=== PATIENT | male | born 1945 | race Caucasian/White ===

== ENCOUNTER 2018-05-01 18:53 | Inpatient (IN) | payer MEDICARE ==
[2018-05-01 19:30] LABS: #Eosinphils 0.1 thou/uL (0.0-0.7); #Lymphocytes 1.1 thou/uL (1.20-3.40); #Monocytes 0.6 thou/uL (0.11-0.59); #Neutrophils 8.5 thou/uL (1.40-6.50); %Basophils 0.4 % (0.0-1.0); %Eosinophils 1.1 % (0.0-10.0); %Lymphocytes 10.8 % (21.0-51.0); %Monocytes 5.6 % (0.0-10.0); %Neutrophils 82.1 % (42.0-75.0); Hemoglobin 14.3 g/dL (14.0-18.0); Mean Corpuscular HGB CONC 33.5 g/dL (32.0-36.0); Mean Corpuscular Hemoglobin 32.1 pg (27.0-31.0); Mean Corpuscular Volume 95.6 fL (78.0-98.0); Mean Platelet Volume 9.2 fL (7.4-10.4); Platelet Count 166 thou/uL (130-400); RBC Distribution Width 11.6 % (11.5-14.5); Red Blood Cell (RBC) Count 4.47 mill/uL (4.70-6.10); White Blood Cell (WBC) Count 10.3 thou/uL (4.8-10.8)
[2018-05-01 19:53] LABS: ALT (SGPT) 26 U/L (8-55); AST (SGOT) 17 U/L (5-34); Albumin 3.7 g/dL (3.4-4.8); Alkaline Phosphatase 73 U/L (40-150); Anion Gap 12 mmol/L (10-20); BUN (Urea Nitrogen) 13 mg/dL (8.4-25.7); Bilirubin, Total 0.5 mg/dL (0.2-1.2); CK (CPK) 32 U/L (30-200); Calc. Creatinine Clearance 0 mL/min (70-130); Carbon Dioxide 24 mmol/L (23-31); Chloride 107 mmol/L (98-107); Estimated GFR-MDRD Greater than 90; Glucose 118 mg/dL (83-110); Lipase 35 U/L (8-78); Potassium 3.6 mmol/L (3.5-5.1); Protein, Total 6.7 g/dL (5.8-8.1); Sodium 139 mmol/L (136-145)
[2018-05-01 19:57] LABS: CKMB 1.4 ng/mL (0-6.6); Troponin I Less than 0.010 ng/mL (< 0.028)
[2018-05-01 20:07] LABS: Acetaminophen Less than 6.0 mcg/mL (10.0-30.0); Alcohol Less than 10 mg/dL (Less than 10); Salicylate Less than 8.0 mg/dL (15.0-30.0)
--- NOTE | 2018-05-01 20:19 | RAD ---
RADIOGRAPH CHEST 1 VIEW: HISTORY: A 73-year-old male status post syncope and hypotension. FINDINGS: There is no air space density, pulmonary edema, or pneumothorax. The lateral costophrenic angles are sharp. There is widening of the bilateral paratracheal stripes, especially on the right side. This is nonspecific. There are no prior studies available for comparison. The lungs are hypoinflated. Interstitial markings are prominent. IMPRESSION: 1. No acute pulmonary findings. 2. Nonspecific widening of the mediastinum. jnr POS: [facility]
--- NOTE | 2018-05-01 20:53 | CT ---
CT BRAIN WITHOUT CONTRAST: INDICATIONS: Altered mental status. Near syncopal episode. COMPARISON: Prior MRI brain, dated 12/11/2012. FINDINGS: There is generalized cerebral and cerebellar atrophy. The septum pellucidum and third ventricle are midline. There is cavum septum pellucidum. The mastoid air cells are clear. The paranasal sinuses are clear. The skull is intact. IMPRESSION: No acute intracranial abnormality. POS: [facility]
[2018-05-01 21:47] LABS: Bilirubin Negative (Negative); Blood, Urine Small (Negative); Clarity CLOUDY (Clear); Glucose, Urine (Dipstick) Negative (Negative); Leukocyte Moderate (Negative); Nitrite Positive (Negative); Protein, Urine (Dipstick) Trace mg/dL (Neg-Trace); Specific Gravity, Urine 1.021 (1.002-1.036)
[2018-05-01 21:48] LABS: Bacteria/HPF 4+ HPF (None Seen); Hyaline Casts/LPF 7-10 HYALINE CAST LPF (0-3 Hyaline); Pathc Cast-AUWi Flag 0.58 (0-2.49); Squamous Epithelial None Seen HPF (0-3)
[2018-05-01 21:56] LABS: Amphetamine Not Detected (NotDetected); Barbiturates Screen Not Detected (NotDetected); Benzodiazepine Screen Detected (NotDetected); Cocaine Metabolite Screen Not Detected (NotDetected); Medtox Control Line Valid? VALID (VALID); Medtox Reader # READER 1; Methadone Not Detected (NotDetected); Methamphetamine Not Detected (NotDetected); Opiate Screen Not Detected (NotDetected); Oxycodone Screen Not Detected (NotDetected); Phencyclidine (PCP) Not Detected (NotDetected); THC/Cannabinoid Screen Not Detected (NotDetected); Tricyclic Screen Not Detected (NotDetected)
[2018-05-01] MEDS ORDERED: Acetaminophen 325 MG TAB PO PRN (23:04)
[2018-05-01] MEDS ORDERED: Ondansetron HCl/PF 4 MG/2 ML Vial IVP PRN (23:04)
[2018-05-01 23:35] LABS: Lactic Acid 1.5 mmol/L (0.5-2.2)
[2018-05-01] MEDS ORDERED: MEROPENEM 1 GM/50 ML 1 GM in Premix Bag 1 BAG IVPB SCH (23:45)
[2018-05-02 01:44] VITALS: BMI 22.9
--- NOTE | 2018-05-02 01:52 | HP ---
PRIMARY CARE PHYSICIAN: Amos Talley MD CODE STATUS: DNR/DNI. TIME OF EVALUATION: 10:50 p.m. CHIEF COMPLAINT: Near syncope. HISTORY OF PRESENT ILLNESS: This is a 73-year-old male patient with past medical history of Alzheimer disease, no other major comorbidities, came to the hospital, brought in by the family because the patient had an episode of near syncope where he basically almost passed out to the ground. He did not hit his head, no complete loss of consciousness was described by family, no clear tears , no alleviating factors, baseline for the patient is able to establish a simple conversation and answer simple questions; however, he is unable to manage himself with until his activities of daily living by himself. The patient also can walk inside the house in a slow pace, however, has been so weak that has been unable to walk. No fevers reported. No weakness. REVIEW OF SYSTEMS: Unable to obtain as the patient has severe dementia. Information has been gathered from the family and mentioned in the HPI. PAST MEDICAL HISTORY: Positive for hypertension, hyperlipidemia. PAST SURGICAL HISTORY: No surgical history. PSYCHIATRIC HISTORY: Alzheimer's. SOCIAL HISTORY: No drug use. No smoking history. FAMILY HISTORY: Mother with Alzheimer, father with heart problems and prostate cancer. PHYSICAL EXAMINATION: VITAL SIGNS: Blood pressure 110/66, heart rate 60, respiratory rate was 85, temperature 97.9, pain 0/10, oxygen saturation 98 on room air. GENERAL: The patient is alert. The patient has underlying dementia, disoriented, not in acute distress. HEENT: Eyes normal conjunctivae. Moist oral mucosa, anicteric. NECK: No JVD. RESPIRATORY: Bilateral air entry. No rales. No wheezes or medication management. The patient does have tachypnea, but per family member, he has a very long time, very shallow breathing. CARDIOVASCULAR: Normal rate, regular rhythm. No murmurs, no gallop. No edema. ABDOMEN: Soft, normal bowel sounds. MUSCULOSKELETAL: Baseline range of motion and strength. No tenderness. SKIN: Warm and intact. No pallor, no rash, no redness. Peripheral pulses are present. Capillary refill. Sensory intact. NEUROLOGIC: At baseline. No evidence of any new focal weakness. Baseline speech. Cranial seems to be intact. PSYCHIATRIC: The patient is unable to recall. The patient has dementia. EKG was reviewed by myself. The patient has normal sinus rhythm with a rate of 64 with VA 128, QRS 92, QT corrected 462 prolonged QT. T-wave inversion V2, V3. Brain CT was done. The patient had no acute intracranial abnormalities. Chest x-ray, no acute pulmonary findings, nonspecific widening of the mediastinum. LABORATORY DATA: Reviewed. White count 10.3, hemoglobin 14.3, platelet count 166. Chemistry: Sodium 139, potassium 3.6, chloride 107, carbon dioxide 24, anion gap 12, BUN 13, creatinine 0.8, GFR greater than 90, glucose 118. Lactic acid 4.2, calcium 9.0. Troponin was negative. Beta natriuretic peptide 115.9. TSH was 2.3. Urine was done and was positive with a white count greater than 15, too numerous to count. Toxicology reveals benzodiazepines were positive. ASSESSMENT AND PLAN: The patient will be placed in the hospital with following medical problems: 1. Urinary tract infection. UA is positive. The patient is on meropenem, his blood pressure has been borderline. We will send cultures and adjust treatment for sensitivity. 2. Hyperglycemia with glucose 118, minimal . No need for any immediate treatment at this point. We will monitor, we will treat accordingly. 3. Advanced Alzheimer disease, the patient will need supportive care as inpatient. 4. Code status discussed with and patient's and daughter and son, they are out of the hospital, doing well. family member DNR/DNI. 5. Deep venous thrombosis prophylaxis. 6. Lactic acidosis. Lactic acid 4.2, this is likely secondary to sepsis. The patient has received treatment and antibiotics, follow cultures. Treat underlying condition. The patient received 1 liter normal saline will hydrate with caution given age. MTDD
[2018-05-02 05:01] LABS: #Basophils 0.1 thou/uL (0.0-0.2); #Eosinphils 0.1 thou/uL (0.0-0.7); #Lymphocytes 1.6 thou/uL (1.20-3.40); #Monocytes 0.5 thou/uL (0.11-0.59); #Neutrophils 5.5 thou/uL (1.40-6.50); %Basophils 0.7 % (0.0-1.0); %Eosinophils 1.5 % (0.0-10.0); %Lymphocytes 20.4 % (21.0-51.0); %Monocytes 6.5 % (0.0-10.0); Mean Corpuscular HGB CONC 33.9 g/dL (32.0-36.0); Mean Corpuscular Hemoglobin 32.1 pg (27.0-31.0); Mean Corpuscular Volume 94.7 fL (78.0-98.0); Mean Platelet Volume 8.8 fL (7.4-10.4); Platelet Count 128 thou/uL (130-400); RBC Distribution Width 11.5 % (11.5-14.5); Red Blood Cell (RBC) Count 3.74 mill/uL (4.70-6.10); White Blood Cell (WBC) Count 7.8 thou/uL (4.8-10.8)
[2018-05-02] MEDS: Meropenem 500 MG in Sodium Chloride 0.9% 100 ML IVPB SCH ×3 (05:07→21:23)
[2018-05-02 05:37] LABS: Anion Gap 8 mmol/L (10-20); BUN (Urea Nitrogen) 11 mg/dL (8.4-25.7); Calc. Creatinine Clearance 102 mL/min (70-130); Carbon Dioxide 22 mmol/L (23-31); Chloride 112 mmol/L (98-107); Estimated GFR-MDRD Greater than 90; Glucose 85 mg/dL (83-110); Potassium 3.8 mmol/L (3.5-5.1); Sodium 138 mmol/L (136-145)
[2018-05-02] MEDS ORDERED: Sodium Chloride 0.9% 1,000 ML IV SCH (08:00)
[2018-05-02] MEDS ORDERED: risperiDONE 0.25 MG TAB PO SCH (09:00)
[2018-05-02] MEDS: Donepezil HCl 10 MG TAB PO SCH (09:08)
[2018-05-02] MEDS: Atorvastatin Calcium 20 MG TAB PO SCH (09:08)
[2018-05-02] MEDS: Enoxaparin Sodium 40 MG/0.4 ML SYRINGE SC SCH (09:49)
[2018-05-02] MEDS ORDERED: Melatonin 3 MG TAB PO PRN (13:26)
--- NOTE | 2018-05-02 13:29 | PDOC.PN ---
- Subjective Encounter Start Date: 05/02/18 Encounter Start Time: 11:00 -: pt up in bed confused, daughter at bedside - Objective Resuscitation Status: Resuscitation Status DNR:Do Not Resuscitate Vital Signs & Weight: Vital Signs (12 hours) Temp Pulse Resp BP Pulse Ox 05/02/18 11:44 98 F 55 L 18 104/55 L 100 05/02/18 07:45 98 F 56 L 20 100 05/02/18 07:44 98 F 56 L 20 114/61 100 05/02/18 04:12 98.2 F 55 L 16 106/66 97 Weight Admit Weight 169 lb 4 oz Weight 169 lb 4 oz I&O: 05/01/18 05/02/18 05/03/18 06:59 06:59 06:59 Intake Total 500 Balance 500 Result Diagrams: 05/02/18 04:46 05/02/18 04:46 Phys Exam - Physical Examination pt oriented to self only, confused Neck: no nodes, no JVD, supple, full ROM Respiratory: no wheezing, no rales, no rhonchi, wheezing present, clear to auscultation bilateral Cardiovascular: RRR, no significant murmur, no rub, gallop, irregular Gastrointestinal: soft, non-tender, no distention, positive bowel sounds Musculoskeletal: no edema, pulses present, edema present Dx/Plan (1) Acute metabolic encephalopathy Code(s): G93.41 - METABOLIC ENCEPHALOPATHY Status: Acute (2) UTI (urinary tract infection) Status: Acute (3) Dementia Code(s): F03.90 - UNSPECIFIED DEMENTIA WITHOUT BEHAVIORAL DISTURBANCE Status: Acute - Plan will continue abx will deescalate once cx is back -: pt has baseline dementia and will get PT to evaluate pt -: will continue home meds -: pt has been bradycardiac will get echo -: Daughter states that he has been feeling weak and presyncopal episodes * . Review of Systems - Review of Systems Respiratory: negative: Cough, Dry, Shortness of Breath, Hemoptysis, SOB with Excertion, Pleuritic Pain, Sputum, Wheezing Cardiovascular: negative: chest pain, palpitations, orthopnea, paroxysmal nocturnal dyspnea, edema, light headedness, other Gastrointestinal: negative: Nausea, Vomiting, Abdominal Pain, Diarrhea, Constipation, Melena, Hematochezia, Other - Medications/Allergies Allergies/Adverse Reactions: Allergies Allergy/AdvReac Type Severity Reaction Status Date / Time bee venom protein (honey bee) Allergy Verified 05/01/18 23:29 Penicillins Allergy Verified 05/01/18 23:29 Medications: Current Medications Acetaminophen (Tylenol) 650 mg PO Q4H PRN PRN Reason: Headache/Fever or Pain Atorvastatin Calcium (Lipitor) 20 mg PO DAILY [facility] Last Admin: 05/02/18 09:08 Dose: Not Given Donepezil HCl (Aricept) 10 mg PO DAILY [facility] Last Admin: 05/02/18 09:08 Dose: 10 mg Enoxaparin Sodium (Lovenox) 40 mg SC 0900 [facility] Last Admin: 05/02/18 09:49 Dose: Not Given Meropenem 500 mg/ Sodium (Chloride) 100 mls @ 200 mls/hr IVPB 0500,1300,2100 [facility] Last Admin: 05/02/18 05:07 Dose: 100 mls Sodium Chloride (Normal Saline 0.9%) 1,000 mls @ 70 mls/hr IV .[id number] [facility] Stop: 05/02/18 22:17 Last Admin: 05/02/18 08:20 Dose: 1,000 mls Melatonin (Melatonin) 3 mg PO HS PRN PRN Reason: Insomnia Memantine (Namenda) 5 mg PO BID [facility] Last Admin: 05/02/18 09:08 Dose: 5 mg Ondansetron HCl (Zofran) 4 mg IVP Q6H PRN PRN Reason: Nausea/Vomiting Quetiapine Fumarate (Seroquel) 25 mg PO HS PRN PRN Reason: Anxiety/Agitation Risperidone (Risperidone) 0.25 mg PO DAILY [facility] Last Admin: 05/02/18 09:08 Dose: 0.25 mg Sodium Chloride (Flush - Normal Saline) 10 ml IVF Q12HR [facility] Last Admin: 05/02/18 08:22 Dose: 10 ml Sodium Chloride (Flush - Normal Saline) 10 ml IVF PRN PRN PRN Reason: Saline Flush Trazodone HCl (Desyrel) 100 mg PO HS [facility]
[2018-05-02] MEDS ORDERED: TRAZODONE HCL 100 MG PO SCH (21:00)
[2018-05-02] MEDS: traZODone HCl 50 MG TAB PO SCH (22:08)
[2018-05-03] MEDS: Meropenem 500 MG in Sodium Chloride 0.9% 100 ML IVPB SCH ×3 (05:22→21:51)
[2018-05-03] MEDS: Atorvastatin Calcium 20 MG TAB PO SCH (08:39)
[2018-05-03] MEDS: Donepezil HCl 10 MG TAB PO SCH (08:39)
[2018-05-03] MEDS: Enoxaparin Sodium 40 MG/0.4 ML SYRINGE SC SCH (09:19)
--- NOTE | 2018-05-03 19:33 | PDOC.PN ---
- Subjective Encounter Start Date: 05/03/18 Encounter Start Time: 19:25 Subjective: f/u for UTI and encephalopathy. Overall doing much better per family -: report. Back to baseline per son. - Objective Resuscitation Status: Resuscitation Status DNR:Do Not Resuscitate MAR Reviewed: Yes Vital Signs & Weight: Vital Signs (12 hours) Temp Pulse Pulse Pulse Resp BP BP 05/03/18 17:55 62 05/03/18 16:15 97.7 F 54 L 18 05/03/18 13:23 55 L 53 L 122/75 121/73 05/03/18 12:19 97.6 F 54 L 18 05/03/18 07:46 98.6 F 59 L 20 BP BP BP BP Pulse Ox Pulse Ox Pulse Ox 05/03/18 17:55 152/83 H 160/92 H 142/75 H 05/03/18 16:15 136/71 99 05/03/18 13:23 94 L 94 L 05/03/18 12:19 127/69 100 05/03/18 07:46 103/56 L 100 Weight Admit Weight 169 lb 4 oz Weight 169 lb 4 oz I&O: 05/02/18 05/03/18 05/04/18 06:59 06:59 06:59 Intake Total 500 2545 960 Balance 500 2545 960 Result Diagrams: 05/02/18 04:46 05/02/18 04:46 Additional Labs: Microbiology 05/01/18 20:25 Urine Straight Catheter Urine Culture - Final Enterobacter aerogenes 05/01/18 19:48 Venous blood - Right Hand Blood Culture - Preliminary NO GROWTH AT 48 HOURS 05/01/18 19:42 Venous blood - Right Arm Blood Culture - Preliminary NO GROWTH AT 48 HOURS Laboratory Tests 05/01/18 05/01/18 05/01/18 19:19 19:19 19:59 Lactic Acid 4.2 H* Ammonia 39 TSH 3rd Generation 2.3294 05/01/18 23:17 Lactic Acid 1.5 Ammonia TSH 3rd Generation Radiology Reviewed by me: Yes (CT brain - neg) EKG Reviewed by me: Yes (Tele - Sinus janee) Phys Exam - Physical Examination Constitutional: NAD HEENT: PERRLA, sclera anicteric, oral pharynx no lesions Neck: no nodes, no JVD, supple Respiratory: no wheezing, no rales, no rhonchi, clear to auscultation bilateral S1, S2 Cardiovascular: RRR, no significant murmur, no rub, gallop Gastrointestinal: soft, non-tender, no distention, positive bowel sounds Musculoskeletal: no edema, pulses present RUE with resting tremor Neurological: moves all 4 limbs A x O x 1 Skin: normal turgor, cap refill <2 seconds Dx/Plan (1) UTI (urinary tract infection) Status: Acute Comment: + enterobacter spp, convert to Levaquin in am, continue Meropenem (2) Acute metabolic encephalopathy Code(s): G93.41 - METABOLIC ENCEPHALOPATHY Status: Acute Comment: Secondary to #1, improved (3) Dementia Code(s): F03.90 - UNSPECIFIED DEMENTIA WITHOUT BEHAVIORAL DISTURBANCE Status: Acute Comment: Advanced Alzheimer's dementia, supportive mgmt, caregiver for 1 :1 (4) Elevated blood pressure reading Code(s): R03.0 - ELEVATED BLOOD-PRESSURE READING, W/O DIAGNOSIS OF HTN Status : Acute Comment: Serial BP monitoring - Plan plan discussed w/ family, continue antibiotics, PT/OT, social media marketing analyst, out of bed/ambulate, DVT proph w/SCDs Stable overall -: Continue Meropenem -: Start Levaquin in am -: PT for mobilization -: 2D echo pending * Likely home in 05/04/18
[2018-05-03] MEDS ORDERED: risperiDONE 0.25 MG TAB PO SCH (21:00)
[2018-05-03] MEDS: traZODone HCl 50 MG TAB PO SCH (21:51)
[2018-05-04] MEDS: Meropenem 500 MG in Sodium Chloride 0.9% 100 ML IVPB SCH (05:28)
[2018-05-04] MEDS: Atorvastatin Calcium 20 MG TAB PO SCH (09:33)
[2018-05-04] MEDS: Enoxaparin Sodium 40 MG/0.4 ML SYRINGE SC SCH (09:33)
[2018-05-04] MEDS: Donepezil HCl 10 MG TAB PO SCH (09:33)
[2018-05-04 14:48] VITALS: BP 98/63; TEMP 97.8
--- NOTE | 2018-05-04 20:22 | DIS ---
DATE OF ADMISSION: 05/01/2018 DATE OF DISCHARGE: 05/04/2018 DISCHARGE DIAGNOSES: 1. Urinary tract infection with Enterobacter species. 2. Acute metabolic encephalopathy secondary to #1, resolving. 3. Advanced Alzheimer dementia. 4. Deconditioning. CONSULTATIONS: None. PERTINENT LABORATORY AND X-RAY FINDINGS: Lactic acid level ranged between 1.5-4.2. LFTs within norm al limits. BNP 116. TSH 2.33. Serum ammonia level 39. CBC showed a white blood cell count ranged between 7.8-10.3. Hemoglobin ranged between 12.0-14.3. Urine drug screen positive for benzodiazepin es. Urine culture dated 05/01/2018 showed greater than 100,000 colonies of Enterobacter aerogenes, p ansensitive except for cefoxitin. Blood cultures x2 dated 05/01/2018 showed no growth at [address] of the brain without contrast dated 05/01/2018 showed no acute intracranial process. Portable sol st x-ray dated 05/01/2018 showed no acute cardiopulmonary process. HOSPITAL COURSE: The patient was admitted to the telemetry unit after initially presenting with alte red mentation and encephalopathy with associated urinary tract infection. Urine culture did show Ent erobacter species and the patient continued on meropenem intravenously throughout the hospital course . The patient transitioned to Levaquin 500 mg daily with plans to complete outpatient antibiotic cov erage for 5 days on discharge. The patient's overall mental status improved with treatment of underl amado urinary tract infection. At which point, the patient is clinically at baseline mental status fu nctional level per family report by the time of discharge. I have examined the patient at the time o f discharge and discussed followup instructions with the family who verbalized understanding and agre ement. Due to patient's overall deconditioned status, the patient will be set up with home health se rvices including physical therapy on discharge. The patient overall clinically stable and ready for discharge on 05/04/2018. DISCHARGE MEDICATIONS: 1. Lipitor 20 mg p.o. daily. 2. Donepezil 10 mg p.o. b.i.d. 3. Fluoxetine 20 mg p.o. daily. 4. Namenda 5 mg p.o. daily. 5. Risperdal 0.25 mg p.o. at bedtime. 6. Trazodone 100 mg p.o. at bedtime. 7. Levofloxacin 500 mg p.o. daily x5 days. FOLLOWUP: The patient will follow up with his primary care provider, Dr. Amos Talley within 7 days o f discharge. CONDITION ON DISCHARGE: Stable. ACTIVITY: Ad ronnell. Rolling walker with home physical therapy on discharge. DIET: Regular. CODE STATUS: DO NOT RESUSCITATE. DISPOSITION: Home with [facility], including physical therapy on 05/04/2018. Total time preparing and coordinating discharge is 36 minutes.
--- NOTE | 2018-05-10 08:55 | PQF ---
[employer] Field Technician Crystal Reports Winform Viewer Jonathan Owen CLINICAL DOCUMENTATION CLARIFICATION FORM: POST DISCHARGE Pt was followed and managed by my colleagues, they have more knowledge about hospital course and final diagnosis, and will be able to better answer your query,thank you Addendum to original discharge summary date: ____ Late entry note date: __ Please exercise your independent, professional judgment in responding to the clarification form. Clinical indicators are provided on the bottom of this form for your review Please check appropriate box(es): [ ] Sepsis due to: (Pna, UTI, gangrenous gall bladder, etc.) Due to: [ ] Device (please specify) [ ] Implant [ ] Graft [ ] Infusion [ ] SIRS due to non-infectious process (please specify etiology) [ ] with organ dysfunction [ ] without organ dysfunction [ ] Severe sepsis with acute organ dysfunction of: (Examples: respiratory failure, encephalopathy, acute kidney failure, other) [ ] Septic Shock [ ] Localized infection without sepsis [ ] Other diagnosis [ ] Unable to determine In addition, please specify: Present on Admission (POA): [ ] Yes [ ] No [ ] Unable to determine For continuity of documentation, please document condition throughout progress notes and discharge summary. Thank You. CLINICAL INDICATORS - SIGNS / SYMPTOMS / LABS On admit WBC 10.3, Lactic acid 4.2 patient diagnosed with UTI due to Enterobacter species- per HP Lactic acidosis likely secondary to sepsis- ED diagnosis sepsis with UTI. Patient does have clinical indicators of increased WBC, Lactic acid, encephalopathy and infection however the documentation does not support coding sepsis due to it being documented as a likely diagnosis on the HP and not carried throughout the progress notes/DC Was the sepsis diagnosis on the H&P/ED ruled out or resolved? (This form is maintained as a part of the permanent medical record) 2014 [employer]. All Rights Reserved Yara [email or web address] [phone] MTDD
== END 2018-05-04 14:52 | disposition home or self-care (01) | DRG 689 ==
LOC: ERS 18:53 → 2NO 22:17
PROVIDERS: ADMIT Hospitalist; ATTEND Hospitalist
DX: N39.0 Urinary tract infection, site not specified (principal); G93.41 Metabolic encephalopathy; G30.9 Alzheimer's disease, unspecified; F02.80 Dementia in other diseases classified elsewhere, unspecified severity, without behavioral disturbance, psychotic disturbance, mood disturbance, and anxiety; I10 Essential (primary) hypertension; E78.5 Hyperlipidemia, unspecified; R73.9 Hyperglycemia, unspecified; B96.89 Other specified bacterial agents as the cause of diseases classified elsewhere; Z66 Do not resuscitate
CPT/HCPCS: 36415; 51701; 70450; 71045; 80048; 80053; 80306; 80307; 81003; 81015; 82140; 82550; 82553; 83605; 83690; 83880; 84443; 84484; 85025; 87040; 87077; 87086; 87186; 93005; 96361; 96365; 96375; A4216; G8978-GP-CM; G8979-GP-CK; J1650; J1956; J2185; J7050

== ENCOUNTER 2018-08-08 09:25 | Inpatient (IN) | payer MEDICARE ==
[2018-08-08 10:05] LABS: #Basophils 0.1 thou/uL (0.0-0.2); #Eosinphils 0.2 thou/uL (0.0-0.7); #Lymphocytes 1.8 thou/uL (1.20-3.40); #Monocytes 0.6 thou/uL (0.11-0.59); #Neutrophils 5.5 thou/uL (1.40-6.50); %Basophils 0.9 % (0.0-1.0); %Eosinophils 2.9 % (0.0-10.0); %Lymphocytes 22.2 % (21.0-51.0); %Monocytes 7.7 % (0.0-10.0); %Neutrophils 66.3 % (42.0-75.0); Hemoglobin 14.2 g/dL (14.0-18.0); Mean Corpuscular HGB CONC 33.3 g/dL (32.0-36.0); Mean Corpuscular Hemoglobin 31.2 pg (27.0-31.0); Mean Corpuscular Volume 93.8 fL (78.0-98.0); Mean Platelet Volume 8.8 fL (7.4-10.4); Platelet Count 254 thou/uL (130-400); RBC Distribution Width 11.5 % (11.5-14.5); Red Blood Cell (RBC) Count 4.56 mill/uL (4.70-6.10); White Blood Cell (WBC) Count 8.2 thou/uL (4.8-10.8)
[2018-08-08 10:14] LABS: INR-International Normal Ratio 1.1; PTT 29.7 SEC (22.9-36.1); Prothrombin Time 13.8 SEC (12.0-14.7)
--- NOTE | 2018-08-08 10:24 | RAD ---
CHEST 1 VIEW: Date: 08/08/18 COMPARISON: 05/01/18. HISTORY: Frequent falls. Fever. FINDINGS: Normal cardiac silhouette. Pulmonary vessels and hilum are normal. Costophrenic angles are clear. No masses or consolidation. No pneumothorax or osseous abnormalities. IMPRESSION: No acute cardiopulmonary process. POS: [facility]
--- NOTE | 2018-08-08 10:24 | RAD ---
2 VIEWS RIGHT HIP: Date: 08/08/18 COMPARISON: None. HISTORY: Fell 2 weeks ago at home before being placed on Hospice. Right hip pain. FINDINGS: Two views of the right hip show a fracture of the right femoral neck. There appears to be absence of bone in the region of the femoral neck and this could be a pathologic fracture. No dislocation is see n. IMPRESSION: Right femoral neck fracture. This fracture may be a pathologic fracture. POS: [facility]
[2018-08-08 10:27] LABS: ALT (SGPT) 8 U/L (8-55); AST (SGOT) 11 U/L (5-34); Albumin 3.4 g/dL (3.4-4.8); Alkaline Phosphatase 87 U/L (40-150); Anion Gap 9 mmol/L (10-20); BUN (Urea Nitrogen) 27 mg/dL (8.4-25.7); Bilirubin, Total 0.4 mg/dL (0.2-1.2); Calc. Creatinine Clearance 0 mL/min (70-130); Calcium 9.1 mg/dL (7.8-10.44); Carbon Dioxide 30 mmol/L (23-31); Chloride 106 mmol/L (98-107); Estimated GFR-MDRD Greater than 90; Globulin 3.3 g/dL (2.4-3.5); Glucose 105 mg/dL (83-110); Lipase 23 U/L (8-78); Potassium 4.1 mmol/L (3.5-5.1); Protein, Total 6.7 g/dL (5.8-8.1); Sodium 141 mmol/L (136-145)
--- NOTE | 2018-08-08 10:44 | CT ---
CT CERVICAL SPINE NONCONTRAST: HISTORY: 73-year-old male status post acute cervical trauma from fall. FINDINGS: There are no jumped or perched facets. There is no evidence of acute fracture. The vertebral body h eights are maintained. There is no prevertebral soft tissue swelling. IMPRESSION: No evidence of acute fracture or acute traumatic subluxation. jackie POS: [facility]
--- NOTE | 2018-08-08 10:55 | CT ---
CT HEAD NONCONTRAST: History: Fall, head injury, altered mental status. Comparison: 05-01-18 FINDINGS: There is no evidence of acute intracranial hemorrhage or infarct. Diffuse cortical atrophy and chroni c ischemic small vessel disease are again demonstrated. No mass effect or shift of midline structures . Visualized paranasal sinuses remain well aerated. IMPRESSION: Chronic type findings are stable. No acute intracranial abnormalities are demonstrated. POS: [facility]
[2018-08-08 11:21] LABS: Bilirubin Negative (Negative); Blood, Urine Negative (Negative); Clarity CLEAR (Clear); Glucose, Urine (Dipstick) Negative (Negative); Leukocyte Negative (Negative); Nitrite Negative (Negative); Protein, Urine (Dipstick) Negative (Neg-Trace); Specific Gravity, Urine 1.032 (1.002-1.036)
[2018-08-08] MEDS ORDERED: Ondansetron ODT 4 MG TAB SL PRN (14:46)
[2018-08-08] MEDS ORDERED: Acetaminophen 325 MG TAB PO PRN (14:46)
[2018-08-08] MEDS ORDERED: Ondansetron PF 4 MG/2 ML Vial IVP PRN ×2 (14:46→15:15)
[2018-08-08] MEDS ORDERED: Morphine 4 MG/ML VIAL SLOW IVP PRN (14:47)
[2018-08-08] MEDS ORDERED: Hyoscyamine Sulfate SL 0.125 mg Tablet SL PRN (15:15)
--- NOTE | 2018-08-08 17:09 | HP ---
RESIDENT: Ahsan Ortiz MD. CHIEF COMPLAINT: Hip pain. HISTORY OF PRESENT ILLNESS: This is a 73-year-old male with history of worsening Alzheimer dementia and hypertension, who presented to the hospital from home for evaluation of hip pain and decreased ambulation. This patient has severe dementia and was unable to provide history, so history was provided by family, who was present at bedside. They report that the patient has had worsening Alzheimer dementia over the last year and was started with hospice two weeks ago and has been living in a private home occupied by a few other hospice patients with home health. Family reports that since April, the patient has had more frequent falls than previously, though they do not know the reason for his falls. They report that three days ago, the patient started to ambulate less frequently until he was nonambulatory over the course of the three days. When asked, if the patient was in pain, the patient denied any discomfort or pain whatsoever. Family reports that most recent known fall was over . Family reports that today when daughter touched the patient's right hip, the patient winced in pain and so the patient was brought to the emergency department. Here, the patient is found to have right femoral neck fracture, possibly due to pathologic etiology on hip x-ray and so Orthopedic Surgery was consulted from the emergency department. REVIEW OF SYSTEMS: Unable to obtain due to the patient's mental status. PAST MEDICAL HISTORY: Hypertension and dementia. PAST SURGICAL HISTORY: Denies. FAMILY HISTORY: Alzheimer dementia and prostate cancer. 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 Denies drugs. ALLERGIES: PENICILLIN. MEDICATIONS: Home medications; 1. Lorazepam 1 mg b.i.d. 2. Trazodone 100 mg. 3. Memantine 5 mg b.i.d. 4. Fluoxetine 20 mg q.a.m. 5. Risperidone 0.25 mg at bedtime. 6. Meloxicam 15 mg q.a.m. 7. Hyoscyamine 0.125 mg. 8. Thorazine suppository 100 mg. CODE STATUS: DNR/DNI. This was confirmed by the daughter who is medical power of claims attorney with her brother. PHYSICAL EXAMINATION: VITAL SINGS: Blood pressure 155/88; pulse 74; respirations 20; temperature 98.4, temperature max 100.3; pain zero; O2 saturation 100 on room air. Weight 81 kg. GENERAL: The patient is resting comfortably in his bed, alert, not oriented, no apparent distress. HEENT: Head, atraumatic and normocephalic. EENT, EOMI. Moist mucosal membranes. NECK: Trachea midline. Soft. CHEST: No tenderness to palpation. No bruising. CARDIAC: Regular rate and rhythm. No murmurs. RESPIRATORY: Clear to auscultation bilaterally. No wheezing. GI: Soft, nontender. Normal bowel sounds. NEURO: No acute focal neurologic deficit. Normal sensation. EXTREMITIES: Equal pulses bilaterally. Moves all four extremities. SKIN: No rashes. No lesions. LABORATORY FINDINGS: White blood cell count 8.2, hemoglobin 14.2, hematocrit 42.8, platelet count 254. Coagulation, INR 1.1. Sodium 141, potassium 4.1, chloride 106, carbon dioxide 30, BUN 27, creatinine 0.65, glucose 105. Lactic acid 1.2. AST 11, ALT 8. Troponin I 0.010. Urinalysis negative. RADIOGRAPHIC FINDINGS: 1. Brain CT. Impression; chronic type findings are stable. No acute intracranial abnormalities are demonstrated. 2. Chest x-ray. Impression; no acute cardiopulmonary process. 3. Cervical spine CT. Impression; no evidence of acute fracture or acute traumatic subluxation. 4. Hip x-ray. Impression; right femoral neck fracture. This fracture may be a pathologic fracture. ASSESSMENT: 1. Right femoral neck fracture, likely due to recent history of frequent falls. The patient was ambulating fine before three days ago when the suspected fall may have happened. 2. Hypertension. The patient has variable blood pressures in the ER from normotensive to hypertensive ranges with systolic in the 150s. 3. Depression. 4. Dementia. PLAN: 1. Orthopedic Surgery has already been consulted and the patient has been evaluated with Dr. Campbell. This case was discussed with him and plans are made for the patient to undergo a surgical repair in the morning. We will admit this patient and pain control them with ibuprofen and Tylenol with tramadol as needed. The patient may eat until midnight, from which he will be n.p.o. for surgery in the morning. All other chronic medical issues will be managed with home medications. Code status DNR/DNI as discussed with family and daughter, medical power of claims attorney. DISPOSITION: Three midnights. Job ID: [id number]
[2018-08-08] MEDS: Acetaminophen 500 MG TAB PO SCH (18:50)
[2018-08-08] MEDS: Senokot S 8.6-50 MG TAB PO SCH (20:58)
[2018-08-08] MEDS: Famotidine 20 MG TAB PO SCH (20:59)
[2018-08-08] MEDS: risperiDONE 0.25 MG TAB PO SCH (20:59)
[2018-08-08] MEDS: traMADol HCl 50 MG TAB PO PRN (21:00)
[2018-08-08] MEDS: Ibuprofen 600 MG TAB PO SCH (21:00)
--- NOTE | 2018-08-08 21:53 | CON ---
DATE OF CONSULTATION: 08/08/2018 CHIEF COMPLAINT: Right hip pain. HISTORY OF PRESENT ILLNESS: Mr. Vanegas is a 73-year-old male with advanced dementia. He lives in a nursing facility currently. He has been on hospice before, but is no longer. His family is at the bedside including daughter and . They reported that 2 weeks ago, he was walking well with no assist device. He did have advanced dementia, but was able to ambulate independently. He has fallen several times since that point. He stopped being able to ambulate without assistance and has been increased pain in the hip. X-ray today demonstrated a femoral neck fracture. This appears subacute. He is resting in bed today currently. Orthopedics was consulted for hip fracture treatment. He is being admitted to the hospital. PAST MEDICAL HISTORY: Advanced dementia, Alzheimer's. Also a history of hypertension and hyperlipidemia. PAST SURGICAL HISTORY: Negative. PSYCHIATRIC HISTORY: Positive for Alzheimer's dementia. SOCIAL HISTORY: The patient's family denies that he uses drugs, alcohol, or smokes. ALLERGIES: BEE VENOM AND PENICILLIN. FAMILY MEDICAL HISTORY: Noncontributory. IMAGING DATA: X-rays of the pelvis and right hip demonstrate a femoral neck fracture with displacement. There is shortening of the proximal femur. This appears subacute. The body edges are no longer sharp. There is no obvious lesion or evidence of pathologic fracture. PHYSICAL EXAMINATION: VITAL SIGNS: Blood pressure is 143/82, pulse is 66, respiratory rate 20, temperature is 99.4. GENERAL: He is lying supine. Does not answer questions. He is somewhat sleepy, but will awake to stimuli. HEENT: Normocephalic, atraumatic. RESPIRATORY: The patient is breathing comfortably. ABDOMEN: Soft, nontender, and nondistended. CARDIOVASCULAR: Peripheral pulses are palpable and regular. MUSCULOSKELETAL: The patient's right lower extremity has shortening. There is no significant ecchymosis or swelling proximally. He does have edema about his ankle. He is able to flex and extend the ankle. The foot is warm and well perfused. He has pain with motion of the hip. IMPRESSION: Subacute right femoral neck fracture in an elderly male with advanced dementia. PLAN: I had a long discussion with the patient's family. They report that he was ambulatory independently in the recent past and would like for him to be able to walk again. They are aware that his fracture is not acute. I reviewed options, which would include nonsurgical managements, however, this would likely to mostly bedrest or chair mobilization. To give him a chance of ambulation, we could perform a hemiarthroplasty of the hip. This would come with risk of dislocation and risk of anesthesia. They are aware of this and would like to proceed. He will need preoperative medical optimization. He will need to be n.p.o. after midnight. I will plan for surgical intervention tomorrow if the patient is ready for this. N.p.o. after midnight. He will have preoperative antibiotics and DVT prophylaxis. Job ID: [id number]
[2018-08-09] MEDS: Ketorolac Tromethamine 30 MG/ML VIAL IVP SCH ×3 (00:04→17:52)
[2018-08-09] MEDS: Acetaminophen 1,000 MG in Premix Bag 1 BAG IVPB SCH ×4 (00:05→17:53)
[2018-08-09] MEDS: Sodium Chloride 0.9% 1,000 ML IV SCH ×3 (00:07→17:53)
[2018-08-09] MEDS: risperiDONE 0.25 MG TAB PO SCH ×2 (01:13→21:16)
[2018-08-09] MEDS: Famotidine 20 MG TAB PO SCH ×3 (01:13→21:17)
[2018-08-09] MEDS: Ibuprofen 600 MG TAB PO SCH ×4 (01:13→21:24)
[2018-08-09] MEDS: Senokot S 8.6-50 MG TAB PO SCH ×3 (01:13→21:21)
[2018-08-09] MEDS: Acetaminophen 500 MG TAB PO SCH ×4 (01:13→18:36)
[2018-08-09 06:31] LABS: #Basophils 0.1 thou/uL (0.0-0.2); #Eosinphils 0.5 thou/uL (0.0-0.7); #Monocytes 0.5 thou/uL (0.11-0.59); #Neutrophils 3.7 thou/uL (1.40-6.50); %Basophils 0.8 % (0.0-1.0); %Eosinophils 6.9 % (0.0-10.0); %Monocytes 7.8 % (0.0-10.0); %Neutrophils 54.5 % (42.0-75.0); Hemoglobin 13.3 g/dL (14.0-18.0); Mean Corpuscular Hemoglobin 30.2 pg (27.0-31.0); Mean Corpuscular Volume 94.4 fL (78.0-98.0); Mean Platelet Volume 8.9 fL (7.4-10.4); Platelet Count 217 thou/uL (130-400); RBC Distribution Width 11.6 % (11.5-14.5); Red Blood Cell (RBC) Count 4.41 mill/uL (4.70-6.10); White Blood Cell (WBC) Count 6.7 thou/uL (4.8-10.8)
[2018-08-09 06:44] LABS: Anion Gap 10 mmol/L (10-20); BUN (Urea Nitrogen) 27 mg/dL (8.4-25.7); Calc. Creatinine Clearance 0 mL/min (70-130); Carbon Dioxide 28 mmol/L (23-31); Chloride 107 mmol/L (98-107); Estimated GFR-MDRD Greater than 90; Glucose 93 mg/dL (83-110); Potassium 4.1 mmol/L (3.5-5.1); Sodium 141 mmol/L (136-145)
[2018-08-09] MEDS: FLUoxetine HCl 20 MG CAP PO SCH (09:30)
[2018-08-09] MEDS ORDERED: Clindamycin/D5W 900 mg/50 ml Premix Bag ONE (12:50)
[2018-08-09] MEDS ORDERED: Fentanyl 100 MCG/2 ML VIAL ONE ×2 (12:55→14:37)
[2018-08-09] MEDS ORDERED: Midazolam HCl 2 mg/2 ml Vial ONE (12:55)
[2018-08-09] MEDS ORDERED: Dexamethasone 4 mg/ml Vial ONE (12:56)
[2018-08-09] MEDS ORDERED: Clindamycin/D5W 900 MG in Premix Bag 1 BAG IVPB SCH (13:00)
--- NOTE | 2018-08-09 13:55 | PRG ---
DATE OF SERVICE: 08/09/2018 SUBJECTIVE: Mr. Vanegas is resting comfortably in his bed this morning and is alert, but not oriented as it is his baseline secondary to his dementia. The patient is pleasant, however, and denies any pain in his hip whatsoever. The patient has no complaints at this time. Family also expressed that they have no concerns or questions at this time. OBJECTIVE: VITAL SIGNS: Blood pressure 130/70, pulse 74, respirations 16, O2 saturation 96% on room air, and temperature 97.8. GENERAL: Alert. The patient is in no apparent distress by general appearance and by impression of vital signs and per the patient's history. HEENT: EOMI. Moist mucosal membranes. CARDIAC: Regular rate and rhythm. No murmurs. PULMONARY: Clear to auscultation bilaterally. Equal chest rise. GI: Normal bowel sounds. Soft and nontender. SKIN: No rashes. No lesions. LABORATORY DATA: White blood cell count 6.7, hemoglobin 13.3, hematocrit 41.7, platelets 217. Sodium 141, potassium 4.1, chloride 107, carbon dioxide 28, BUN 27, creatinine 0.63, and glucose 93. ASSESSMENT AND PLAN: This is a 73-year-old male with history of significant dementia and hypertension, admitted for evaluation and treatment of right femoral neck fracture. The patient is n.p.o. since midnight and has plans for surgical repair of fracture by Dr. Campbell, who has been consulted. The patient reports good pain control. We will continue to control pain and put in for Physical Therapy to evaluate and treat the patient after surgery. Job ID: [id number]
[2018-08-09] MEDS ORDERED: Neomycin-Polymyxin 1 ML AMP ONE (14:24)
--- NOTE | 2018-08-09 15:37 | EKG ---
Test Reason : Blood Pressure : / mmHG Vent. Rate : 076 BPM Atrial Rate : 076 BPM P-R Int : 148 ms QRS Dur : 082 ms QT Int : 390 ms P-R-T Axes : 019 057 037 degrees QTc Int : 438 ms Normal sinus rhythm Possible Left atrial enlargement Confirmed by MIGUEL ADHIKARI ([id number]), editorial manager PRUDENCE SEGAL ([id number] on 08/09/2018 3:37:26 PM Referred By: Confirmed By:MIGUEL ADHIKARI
[2018-08-09 17:52] VITALS: BMI 24.4
[2018-08-09] MEDS: traMADol HCl 50 MG TAB PO PRN (18:25)
[2018-08-09] MEDS ORDERED: ePHEDrine/0.9% NaCl/PF SYRINGE 50 mg/10 ml ONE (18:29)
[2018-08-09] MEDS ORDERED: Lidocaine 1% PF 5 ML VIAL ONE (18:29)
[2018-08-09] MEDS ORDERED: PROPOFOL 200 MG/20 ML VIAL ONE (18:29)
[2018-08-09] MEDS ORDERED: Glycopyrrolate 0.2 MG/ML 5 ML SYRINGE ONE (18:29)
--- NOTE | 2018-08-09 18:51 | RAD ---
AP PELVIS ONE VIEW: 08/09/18 HISTORY: 73-year-old male with history of status post left hip hemiarthroplasty. FINDINGS/IMPRESSION: Recent left total hip replacement changes are noted. 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 No dislocation or periprosthetic fracture. POS: [facility]
--- NOTE | 2018-08-09 18:56 | RAD ---
RIGHT HIP ONE VIEW: 08/09/18 HISTORY: 73-year-old male status post hemiarthroplasty right hip. Recent postop total hip replacement changes. The distal femoral portion of the prosthesis is not comp letely included on either this study or on the AP pelvis. No dislocation or periprosthetic fracture i nvolving the visualized femur or acetabulum. IMPRESSION: No dislocation. Distal femoral portion of the prosthesis is not included on either this radiograph or on the AP pelvis. No visualized periprosthetic fracture. POS: [facility]
[2018-08-09] MEDS ORDERED: Bupivacaine HCl 0.5%/Epinephrine 1:200,000/PF 30 ml Vial ONE (19:23)
[2018-08-09] MEDS: Clindamycin/D5W 900 MG in Premix Bag 1 BAG IVPB SCH (21:24)
--- NOTE | 2018-08-09 22:29 | OP ---
DATE OF PROCEDURE: 08/09/2018 PROCEDURE PERFORMED: Right hip bipolar hemiarthroplasty. PREOPERATIVE DIAGNOSIS: Right femoral neck fracture. POSTOPERATIVE DIAGNOSIS: Right femoral neck fracture. COMPLICATIONS: None. ESTIMATED BLOOD LOSS: 150 mL. ANESTHESIA: General plus local. PLUMBING CONTRACTOR: Romeo Pelayo PA-C IMPLANTS: DePuy size 5, [place] stem size 54, bipolar shell with a +12 neck. INDICATIONS FOR PROCEDURE: Mr. Vanegas is a 73-year-old male who fell. He fractured his right femoral neck. He was indicated for bipolar hemiarthroplasty to restore mobilization and provide pain control. Risks have been reviewed in detail. He elected to proceed with the operation. DESCRIPTION OF PROCEDURE: Mr. Vanegas was identified in the preoperative holding area. His correct extremity was marked. He was carried to the operating room. He was positioned supine. General anesthesia was induced. A multidisciplinary time-out was performed. The right lower extremity was prepped and draped in sterile fashion. We began the procedure with a posterior approach to the hip. We dissected down through the subcutaneous tissues to the fascia. The fascia was opened. We exposed the short external rotators of the hip. These were subperiosteally divided from the proximal femur. We then performed a capsulotomy. At this point, we removed the broken femoral head and neck fragments. We then entered the intramedullary canal of the femur. We reamed and broached up to a size 5. This gave a good fit. We trialed. A +12 gave good leg length. At this point, we removed our trial components. We thoroughly irrigated. We then placed our final components and the hip was reduced. We closed the short external rotators and capsule with Ethibond suture through drill holes. We then closed with #2 Vicryl suture, 2-0 Vicryl suture, and dangelo for the skin. A sterile dressing was applied. Job ID: [id number]
[2018-08-10] MEDS: Ketorolac Tromethamine 30 MG/ML VIAL IVP SCH (00:14)
[2018-08-10] MEDS: Acetaminophen 1,000 MG in Premix Bag 1 BAG IVPB SCH (00:15)
[2018-08-10] MEDS: Acetaminophen 500 MG TAB PO SCH ×4 (00:15→16:18)
[2018-08-10] MEDS: traMADol HCl 50 MG TAB PO PRN ×4 (01:27→22:11)
[2018-08-10] MEDS: Sodium Chloride 0.9% 1,000 ML IV SCH ×2 (01:37→14:41)
[2018-08-10] MEDS ORDERED: traMADol HCl 50 MG TAB PO SCH (02:45)
[2018-08-10] MEDS: Clindamycin/D5W 900 MG in Premix Bag 1 BAG IVPB SCH (06:43)
[2018-08-10] MEDS: Ibuprofen 600 MG TAB PO SCH ×3 (06:44→22:01)
[2018-08-10 07:55] LABS: #Monocytes 0.8 thou/uL (0.11-0.59); #Neutrophils 11.1 thou/uL (1.40-6.50); %Basophils 0.1 % (0.0-1.0); %Eosinophils 0.1 % (0.0-10.0); %Lymphocytes 7.8 % (21.0-51.0); %Monocytes 6.2 % (0.0-10.0); %Neutrophils 85.8 % (42.0-75.0); Hemoglobin 11.2 g/dL (14.0-18.0); Mean Corpuscular HGB CONC 33.7 g/dL (32.0-36.0); Mean Corpuscular Hemoglobin 31.2 pg (27.0-31.0); Mean Corpuscular Volume 92.4 fL (78.0-98.0); Mean Platelet Volume 8.5 fL (7.4-10.4); Platelet Count 249 thou/uL (130-400); RBC Distribution Width 11.2 % (11.5-14.5); White Blood Cell (WBC) Count 12.9 thou/uL (4.8-10.8)
[2018-08-10] MEDS: FLUoxetine HCl 20 MG CAP PO SCH (08:37)
[2018-08-10] MEDS: Senokot S 8.6-50 MG TAB PO SCH ×2 (08:37→22:02)
[2018-08-10] MEDS: Famotidine 20 MG TAB PO SCH ×2 (08:37→22:02)
--- NOTE | 2018-08-10 12:52 | PRG ---
DATE OF SERVICE: 08/10/2018 SUBJECTIVE: Mr. Vanegas is resting comfortably in his bed this morning. He is alert and conversational, mildly. Unfortunately, his family is not at bedside and so was unable to provide much information. The patient denies being in pain and has no complaints at this time. OBJECTIVE: VITAL SIGNS: Blood pressure 135/75, pulse 89, respirations 16, O2 saturation 97 on room air, and temperature 98.3. GENERAL: Alert, no acute or apparent distress. CARDIAC: Regular rate and rhythm. No murmurs. PULMONARY: Clear to auscultation bilaterally. Equal chest rise. GI: Normal bowel sounds. Soft and nontender. SKIN: No rashes. No lesions. LABORATORY DATA: White blood cell count 12.9, hemoglobin 11.2, and hematocrit 33.3. ASSESSMENT AND PLAN: Mr. Vanegas is postop day 1 from hemiarthroplasty of right femoral neck fracture and seems to be recovering well with uncomplicated postop course. The patient reports good pain control, which we will continue with medical management. We will also follow up on physical therapy later today to see how the patient is ambulating and how mobile he is. We have plans for possible discharge to his private recovery home later today or tomorrow, pending Physical Therapy's recommendations. We will discontinue Brittany. Job ID: [id number]
[2018-08-10] MEDS: risperiDONE 0.25 MG TAB PO SCH (22:01)
[2018-08-11] MEDS: Acetaminophen 500 MG TAB PO SCH ×3 (00:55→12:51)
[2018-08-11] MEDS: Ibuprofen 600 MG TAB PO SCH ×2 (05:23→15:42)
[2018-08-11] MEDS: traMADol HCl 50 MG TAB PO PRN ×2 (05:23→12:52)
[2018-08-11 08:41] LABS: #Basophils 0.1 thou/uL (0.0-0.2); #Eosinphils 0.1 thou/uL (0.0-0.7); #Lymphocytes 1.9 thou/uL (1.20-3.40); #Monocytes 0.6 thou/uL (0.11-0.59); %Basophils 0.6 % (0.0-1.0); %Eosinophils 0.9 % (0.0-10.0); %Lymphocytes 19.2 % (21.0-51.0); %Monocytes 6.6 % (0.0-10.0); %Neutrophils 72.7 % (42.0-75.0); Hemoglobin 10.4 g/dL (14.0-18.0); Mean Corpuscular HGB CONC 32.6 g/dL (32.0-36.0); Mean Corpuscular Hemoglobin 30.1 pg (27.0-31.0); Mean Corpuscular Volume 92.4 fL (78.0-98.0); Mean Platelet Volume 8.6 fL (7.4-10.4); Platelet Count 193 thou/uL (130-400); RBC Distribution Width 11.2 % (11.5-14.5); Red Blood Cell (RBC) Count 3.46 mill/uL (4.70-6.10); White Blood Cell (WBC) Count 9.7 thou/uL (4.8-10.8)
[2018-08-11] MEDS: FLUoxetine HCl 20 MG CAP PO SCH (09:20)
[2018-08-11] MEDS: Famotidine 20 MG TAB PO SCH (09:20)
[2018-08-11] MEDS: Senokot S 8.6-50 MG TAB PO SCH (09:20)
[2018-08-11 15:44] VITALS: TEMP 98.1
[2018-08-11 15:45] VITALS: BP 149/87
--- NOTE | 2018-08-12 16:35 | DIS ---
DATE OF ADMISSION: 08/08/2018 DATE OF DISCHARGE: 08/11/2018 ADMISSION DIAGNOSES: 1. Hip pain, status post presumed fall. 2. History of hypertension. 3. History of dementia, on home hospice. 4. Depression. 5. Acute traumatic pain. DISCHARGE DIAGNOSES: 1. Hip pain, status post presumed fall. 2. History of hypertension. 3. History of dementia, on home hospice. 4. Depression. 5. Acute traumatic pain. FOUNTAIN CLERK: Dr. Campbell, Orthopedic Surgery. PROCEDURES: On 08/09/2018, right hip bipolar hemiarthroplasty with Dr. Campbell. HOSPITAL COURSE: Silverio Vanegas is a 73-year-old male with a past medical history of Alzheimer dementia and hypertension, who presented with a chief complaint of hip pain and decreased ambulation. The patient was seen and evaluated in the emergency room and found to have a hip fracture. The patient had a history of multiple falls in the past; however, he was able to ambulate up until 72 hours prior to admission. Because of his history of repeated falls, it was presumed that he had an unwitnessed fall at some point resulting in the above injuries. The patient was seen and evaluated by Orthopedic Surgery and taken for operative intervention to his injury on 08/09/2018. Postoperatively, the patient did well. He was able to work with physical therapy. He was medically stable for discharge and cleared for discharge by the consulting teams on 08/11/2018. DISCHARGE DISPOSITION: Home hospice. DISCHARGE CONDITION: Fair. PHYSICAL EXAMINATION: VITAL SIGNS: Prior to discharge, temperature 98, pulse 64, respirations 20, O2 sat 99% on room air, and blood pressure 120/73. GENERAL: Elderly-appearing male, mildly anxious, resting in bed. PULMONARY: Symmetric chest rise. LUNGS: Clear to auscultation bilaterally. CARDIOVASCULAR: Regular rate and rhythm. GASTROINTESTINAL: Abdomen is soft, nontender, and nondistended. MUSCULOSKELETAL: Moves all extremities x4. NEURO: No focal deficit noted. Alert and oriented x1. DISCHARGE INSTRUCTIONS: Discharge instructions were provided to the patient's family and accepting facility. He should have hip precautions, but is otherwise weightbearing as tolerated. He should continue to work with Physical Therapy and Occupational Therapy. His wound should be kept clean and dry. DISCHARGE MEDICATIONS: The patient was discharged home on medications as documented in the electronic medical record. This includes; 1. Tylenol 1000 mg q.6 hours. 2. Chlorpromazine 100 mg q.6 hours p.r.n. for restlessness. 3. Pepcid 20 mg b.i.d. 4. Fluoxetine 20 mg daily. 5. Levsin 0.125 mg sublingual p.r.n. 6. Ibuprofen 600 mg q.8 hours. 7. Namenda 5 mg b.i.d. 8. Risperdal 0.25 mg at bedside. 9. Senokot S 2 tabs p.o. b.i.d. 10. Ultram 50 to 100 mg q.6 hours p.r.n. for severe breakthrough pain. The patient should discontinue his home morphine and Ativan, as this may be contributing to his falls. FOLLOWUP APPOINTMENTS: The patient is to follow up with his primary care provider p.r.n. He should follow up with Orthopedic Surgery in approximately 10 to 14 days for wound check. He does not need to follow up formally with Trauma Services, but may call our office with any questions. This is merely a summary of the patient's hospitalization. For more depth of information, please see his medical record in its entirety. Job ID: [id number]
== END 2018-08-11 17:23 | disposition hospice, home (50) | DRG 470 ==
LOC: ERS 09:25 → SURG A 12:59
PROVIDERS: ADMIT Specialist; ATTEND Specialist
PROC: 0SRR0JZ Replacement of Right Hip Joint, Femoral Surface with Synthetic Substitute, Open Approach (ICD-10-PCS; principal; 2018-08-09)
DX: S72.001A Fracture of unspecified part of neck of right femur, initial encounter for closed fracture (principal); W18.30XA Fall on same level, unspecified, initial encounter; Z91.81 History of falling; I10 Essential (primary) hypertension; F03.90 Unspecified dementia, unspecified severity, without behavioral disturbance, psychotic disturbance, mood disturbance, and anxiety; F32.9 Major depressive disorder, single episode, unspecified; Z91.030 Bee allergy status
CPT/HCPCS: 36415; 70450; 71045; 72125; 72170; 80048; 80053; 81003; 83605; 83690; 84484; 85025; 85610; 85730; 87040; 87086; 87804; 93005; G8978-GP-CM; G8979-GP-CK; G8987-GO-CM; G8988-GO-CL; J0131; J0670; J1100; J1885; J2001; J2250; J2704; J3010; J3490